=== PATIENT | female | born 1965 | race Caucasian/White ===

== ENCOUNTER 2021-01-18 03:55 | Emergency (ER) | payer OTHER ==
[2021-01-18 05:22] LABS: HEMOGLOBIN 12.3 gm/dl (12.3-15.3); RED BLOOD COUNT 4.32 M/UL (4.00-5.10); WHITE BLOOD COUNT 7.8 K/UL (4.5-11.0)
[2021-01-18 05:44] LABS: BUN/CREATININE RATIO 9 (0-10)
[2021-01-18] MEDS ORDERED: ZOFRAN ODT 4 MG4 MG SL (06:27)
== END 2021-01-18 06:45 | disposition left against medical advice (07) ==
LOC: ER1 03:55
PROVIDERS: Emergency Medicine
DX: E87.1 Hypo-osmolality and hyponatremia (principal); R22.0 Localized swelling, mass and lump, head; I10 Essential (primary) hypertension; F17.200 Nicotine dependence, unspecified, uncomplicated; Z88.1 Allergy status to other antibiotic agents
CPT/HCPCS: 80053; 83605; 83615; 83690; 83735; 83880; 84439; 84443; 85025; 96374; 99284; J2405; J7030; Q9967